=== PATIENT | female | born 1970 | race Caucasian/White ===

== ENCOUNTER → 2024-03-24 12:19 | Outpatient (REF) | payer OTHER, SELFPAY | LOC: WDC 12:19 | PROVIDERS: ATTENDING PHYSICIAN Obstetrics & Gynecology Gynecology; FAMILY PHYSICIAN Physician Assistant Medical | DX: Z12.31 Encounter for screening mammogram for malignant neoplasm of breast (principal) | CPT/HCPCS: 77063; 77067 ==

== ENCOUNTER 2024-05-14 07:18 | Emergency (ER) | payer OTHER, SELFPAY ==
[2024-05-14 07:19] VITALS: BP 176/102
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
--- NOTE | 2024-05-14 08:55 | EDRN ---
Reviewed discharge instructions with patient. Verbalized understanding. Ambulated with steady gait to the lobby.
[2024-05-14 08:59] VITALS: BP 150/99
== END 2024-05-14 08:55 | disposition home or self-care (01) ==
LOC: EMR 07:18
PROVIDERS: EMERGENCY PHYSICIAN Student in an Organized Health Care Education/Training Program; FAMILY PHYSICIAN Physician Assistant Medical
DX: S05.11XA Contusion of eyeball and orbital tissues, right eye, initial encounter (principal); S09.90XA Unspecified injury of head, initial encounter; S63.512A Sprain of carpal joint of left wrist, initial encounter; V09.3XXA Pedestrian injured in unspecified traffic accident, initial encounter; K21.9 Gastro-esophageal reflux disease without esophagitis; I10 Essential (primary) hypertension; S30.0XXA Contusion of lower back and pelvis, initial encounter
CPT/HCPCS: 99283; 73110

== ENCOUNTER 2024-09-10 06:18 | Day surgery (SDC) | payer OTHER, SELFPAY ==
[2024-08-25 13:57] LABS: Hematocrit 39.4 % (37.0-47.0); Hemoglobin 13.1 g/dL (12.0-16.0); Mean Corp Hgb Conc. 33.2 g/dL (33.0-37.0); Mean Corpuscular Hgb 28.2 pg (27.0-31.0); Mean Corpuscular Volume 84.7 fL (81.0-99.0); Mean Platelet Volume 10.9 fL (7.4-10.4); Platelet Count 212 10^3/uL (130-400); Red Blood Cell Count 4.65 10^6/uL (4.20-5.40); Red Cell Dist. Width 12.3 % (11.5-14.5); White Blood Cell Count 3.6 10^3/uL (4.8-10.8)
[2024-08-25 14:10] VITALS: BMI 20.4
[2024-08-25 14:28] LABS: ALT (SGPT) 15 U/L (0-35); AST (SGOT) 22 U/L (14-36); Albumin 4.1 g/dl (3.5-5.0); Alkaline Phosphatase 51 U/L (38-126); Blood Urea Nitrogen 12 mg/dl (7-17); Calcium 9.7 mg/dl (8.4-10.2); Carbon Dioxide 30 mmol/L (22-30); Chloride 102 mmol/L (98-107); Estimated Creatinine Clearance 113 ml/min; Glucose 80 mg/dl (70-99); Potassium 4.1 mmol/L (3.5-5.1); Sodium 137 mmol/L (135-145); Total Bilirubin 0.4 mg/dl (0.2-1.3); Total Protein 6.5 g/dl (6.3-8.2); eGFR > 60.00
[2024-09-05 08:02] VITALS: BMI 20.4
[2024-09-10] VITALS (9 sets, daily range): BP systolic 131–161; BP diastolic 80–100; BMI 20.4
[2024-09-10] MEDS: CELEBREX 200 MG PO (10:02)
[2024-09-10] MEDS: TYLENOL 1000 MG PO (10:03)
[2024-09-10] MEDS: SKELAXIN 800 MG PO (10:03)
[2024-09-10] MEDS: LYRICA 150 MG PO (10:03)
[2024-09-10] MEDS: NORMOSOL-R/PLASMALYTE-A 1000 IV (10:03)
--- NOTE | 2024-09-10 12:49 | W.PN.UPDATE ---
Update Note
Progress Note Update
Cervical stenosis s/p C5-C6, C6-C7 ACDF w/ Dr Stapleton 09/10/24
DVT prophylaxis - b/l SCDs/TEDs
HTN - + parameters - monitor BP
Asthma - monitor O2
- Continue prn inhaler
- IS
GERD - add Pepcid HS
Lumbar herniated disc s/p R L5-S1 discectomy, 2014, by Dr. Stapleton
Colon polyps
Hemorrhoids
Migraines
== END 2024-09-10 15:07 | disposition home or self-care (01) ==
LOC: SDS 06:18
PROVIDERS: ATTENDING PHYSICIAN Orthopaedic Surgery Orthopaedic Surgery of the Spine; FAMILY PHYSICIAN Physician Assistant Medical
PROC: 0RG10A0 Fusion of Cervical Vertebral Joint with Interbody Fusion Device, Anterior Approach, Anterior Column, Open Approach (ICD-10-PCS; 2024-09-10)
PROC: 0RB30ZZ Excision of Cervical Vertebral Disc, Open Approach (ICD-10-PCS; 2024-09-10)
DX: M48.02 Spinal stenosis, cervical region (principal); G99.2 Myelopathy in diseases classified elsewhere
CPT/HCPCS: 22551; 20930; 36415; 72020; 80053; 85027; 87070; 93005; C1713

== ENCOUNTER → 2025-06-22 16:03 | Outpatient (REF) | payer OTHER, SELFPAY | LOC: WDC 16:03 | PROVIDERS: ATTENDING PHYSICIAN Obstetrics & Gynecology Gynecology; FAMILY PHYSICIAN Physician Assistant Medical | DX: Z12.31 Encounter for screening mammogram for malignant neoplasm of breast (principal) | CPT/HCPCS: 77063; 77067 ==